=== PATIENT | male | born 1980 | race Two or more races ===

== ENCOUNTER 2016-08-18 16:20 | Emergency (ER) | payer SELFPAY ==
[2016-08-18 17:20] LABS: URINE SOURCE CLEAN CATCH
[2016-08-18 17:21] LABS: BASOPHIL% 0.1 % (0-2.5); HEMATOCRIT 44.6 % (38.0-50.0); HEMOGLOBIN 15.5 gm/dL (13.0-16.0); LYMPHOCYTE# 0.4 X10e3 (1.0-3.5); LYMPHOCYTE% 2.1 % (17.0-45.0); MEAN CELL VOLUME 94.4 FL (83-96); MEAN CORPUSCULAR HEMOGLOBIN 32.8 PG (28-34); MEAN CORPUSCULAR HGB CONC 34.8 g/dL (30-36); MEAN PLATELET VOLUME 8.3 FL (6.5-11.5); MONOCYTE# 1.2 X10e3 (0-1.0); MONOCYTE% 6.2 % (3.0-12.0); NEUTROPHIL# 17.2 X10e3 (1.5-7.1); NEUTROPHIL% 91.6 % (40-75); PLATELET COUNT 128 X10e3 (140-420); RED BLOOD COUNT 4.73 X10e (3.90-5.60); WHITE BLOOD COUNT 18.7 X10e3 (4.0-10.5)
[2016-08-18 17:22] LABS: URINE APPEARANCE CLEAR; URINE BILIRUBIN NEG (NEG); URINE BLOOD TRACE-INTACT (NEG); URINE COLOR YELLOW; URINE GLUCOSE 50 MG/DL (NORM); URINE KETONE NEG (NEG); URINE LEUKOCYTE ESTERASE NEG (NEG); URINE NITRATE NEG (NEG); URINE PROTEIN TRACE (NEG); URINE UROBILINOGEN 0.2 MG/DL (NORM)
[2016-08-18 17:26] LABS: DIFF IND NO
[2016-08-18 17:28] LABS: MICRO INDICATED? YES
[2016-08-18 17:34] LABS: CULTURE INDICATED? NO; URINE BACTERIA NEG (NEG); URINE SQUAMOUS EPITHELIAL CELL FEW /[HPF]; URINE WBC 0-2 /[HPF] (0-5)
[2016-08-18 17:42] LABS: CALCIUM SERUM 8.9 mg/dL (8.4-10.2); CREATININE SERUM 0.5 mg/dL (0.6-1.4); GLOM FILT RATE Estimated 138.5 mL/min (>60); POTASSIUM 3.1 mmol/L (3.5-5.1)
== END 2016-08-18 21:27 ==
LOC: SED 16:20
PROVIDERS: Emergency Medicine
DX: E87.6 Hypokalemia (principal); N48.22 Cellulitis of corpus cavernosum and penis; F17.200 Nicotine dependence, unspecified, uncomplicated; Z88.0 Allergy status to penicillin
CPT/HCPCS: 36415; 80048; 81003; 85025; 87040; 96374; 96375; 99285; J0696; J2270; J2405